=== PATIENT | male | born 1995 | race Two or more races ===

== ENCOUNTER 2019-05-11 23:02 | Emergency (ER) | payer OTHER ==
[~2019-05-11] VITALS: Ht 180.3 cm; Wt 72.6 kg
[2019-05-12] MEDS ORDERED: AMOX-CLAV 875-1 EACH PO ×2 (02:43→02:44)
[2019-05-12] MEDS ORDERED: ORASEP SPRAY30 ML MM ×2 (02:44)
== END 2019-05-12 02:55 | disposition home or self-care (01) ==
LOC: ER 23:02
DX: J03.80 Acute tonsillitis due to other specified organisms (principal)

== ENCOUNTER 2024-02-17 09:10 | Outpatient (CLI) | payer OTHER ==
[~2024-02-17 09:10] MED LIST: AMOX-CLAV 875-1 EACH PO; ORASEP SPRAY30 ML MM
== END 2024-02-17 09:19 | disposition home or self-care (01) ==
LOC: RAD 09:10
DX: R05.1 Acute cough (principal)

== ENCOUNTER 2024-03-02 11:56 | Outpatient (CLI) | payer OTHER | END 2024-03-02 11:58 | disposition home or self-care (01) | LOC: TOM 11:56 | DX: J32.4 Chronic pansinusitis (principal) ==

== ENCOUNTER 2024-04-05 11:43 | Outpatient (CLI) | payer OTHER | END 2024-04-05 11:56 | disposition home or self-care (01) | LOC: RAD 11:43 | DX: M25.561 Pain in right knee (principal) ==

== ENCOUNTER 2024-04-12 14:26 | Outpatient (CLI) | payer OTHER | END 2024-04-12 14:39 | disposition home or self-care (01) | LOC: MRI 14:26 | PROVIDERS: ATTEND General Practice | DX: M25.561 Pain in right knee (principal) | CPT/HCPCS: 73721 ==

== ENCOUNTER 2024-05-20 03:07 | Emergency (ER) | payer OTHER ==
[~2024-05-20] VITALS: Ht 180.3 cm; Wt 77.1 kg
[2024-05-20 06:07] LABS: INR 1.02; PARTIAL THROMBOPLASTIN TIME 23.8 SECONDS (22.0-34.0); PROTHROMBIN TIME 11.1 SECONDS (9.0-11.5)
[2024-05-20 06:15] LABS: HEMATOCRIT 41.2 % (39.0-48.0); HEMOGLOBIN 14.4 g/dL (13-16.00); MEAN CELL VOLUME 86.4 fL (80.0-100.00); MEAN CORPUSCULAR HEMOGLOBIN 30.2 pg (27.00-32.0); PLATELET COUNT 144 K/uL (150-450); RED BLOOD COUNT 4.77 M/uL (4.00-6.00); RED CELL DISTRIBUTION WIDTH 12.5 % (11.5-14.5)
[2024-05-20 06:56] LABS: BILIRUBIN TOTAL 0.96 mg/dL (0.3-1.2); CALCIUM 9.2 mg/dL (8.5-10.1); CREATININE SERUM 1.04 mg/dL (0.70-1.30); GFR 83.85; GLOBULINA 2.4 G/DL (2.4-3.5); POTASSIUM 4.28 mEq/L (3.5-5.1); TOTAL PROTEIN 6.4 gm/dL (6.4-8.2)
[2024-05-20] MEDS ORDERED: ORPHENADRINE CITRATE 30 MG/ML AMPUL IM STA (07:05)
[2024-05-20] MEDS ORDERED: KETOROLAC TROMETHAMINE 60 MG VIAL IM STA (07:05)
== END 2024-05-20 10:17 | disposition home or self-care (01) ==
LOC: ER 03:07
DX: G24.3 Spasmodic torticollis (principal)

== ENCOUNTER 2024-08-09 12:51 | Outpatient (CLI) | payer OTHER | END 2024-08-09 12:58 | disposition home or self-care (01) | LOC: MRI 12:51 | PROVIDERS: ATTEND Physical Medicine & Rehabilitation | DX: M54.2 Cervicalgia (principal) | CPT/HCPCS: 72141 ==